=== PATIENT | female | born 2000 | race Caucasian/White ===

== ENCOUNTER 2021-08-01 03:09 | Emergency (ER) | payer MEDICAID ==
[~2021-08-01] VITALS: Ht 160 cm; Wt 74.8 kg
[2021-08-01 03:09] VITALS: BP 112/77
== END 2021-08-01 06:19 | disposition left against medical advice (07) ==
LOC: ER 03:09
DX: R05.9 Cough, unspecified (principal); R06.02 Shortness of breath; M79.10 Myalgia, unspecified site; Z53.21 Procedure and treatment not carried out due to patient leaving prior to being seen by health care provider